=== PATIENT | female | born 1960 | race American Indian/Alaskan Native ===

== ENCOUNTER 2021-02-14 23:38 | Emergency (ER) | payer OTHER ==
--- NOTE | 2021-02-15 03:05 | Emergency Department Report ---
ED Extremity Problem HPI - General Chief complaint: Extremity Problem,Nontraumatic Stated complaint: LEFT LEG PAIN Time Seen by Provider: 02/15/21 02:02 Source: patient, family Mode of arrival: Ambulatory Limitations: No Limitations - History of Present Illness Initial comments: Patient is a 61-year-old female presents emergency room with complaints of left leg pain that began a few days ago. She states that it goes from her left thigh down her left leg to approximately her ankle. She denies any fall or injury. She states occasionally she notices some swelling in her leg but denies any swelling currently. She denies any calf pain. She denies any fever, nausea, vomiting, diarrhea, numbness, weakness, shortness of breath, chest pain. She is ambulatory without difficulty. No past medical history. No allergies to medications. - Related Data Previous Rx's Medication Instructions Recorded Last Taken Type Meloxicam [Mobic] 7.5 mg PO QDAY #10 tablet 02/15/21 Unknown Rx methOCARBAMOL [Robaxin TAB] 500 mg PO BID PRN #14 tab 02/15/21 Unknown Rx Allergies Allergy/AdvReac Type Severity Reaction Status Date / Time No Known Allergies Allergy Verified 02/14/21 23:45 ED Review of Systems ROS: Stated complaint: LEFT LEG PAIN Other details as noted in HPI Comment: All other systems reviewed and negative ED Past Medical Hx - Past Medical History Previous Medical History?: No - Surgical History Past Surgical History?: No - Medications Home Medications: Home Medications Medication Instructions Recorded Confirmed Last Taken Type Meloxicam [Mobic] 7.5 mg PO QDAY #10 tablet 02/15/21 Unknown Rx methOCARBAMOL [Robaxin TAB] 500 mg PO BID PRN #14 tab 02/15/21 Unknown Rx ED Physical Exam - General Limitations: No Limitations General appearance: alert, in no apparent distress - Head Head exam: Present: atraumatic, normocephalic - Eye Eye exam: Present: normal appearance - ENT ENT exam: Present: mucous membranes moist - Respiratory Respiratory exam: Absent: respiratory distress, accessory muscle use - Extremities Exam Extremities exam: Present: normal inspection, full ROM, normal capillary refill, other (no bony ttp of the BLE, FROM of the BLE, no skin changes, no erythema, no edema, no calf ttp, neurovascularly intact with strong distal pulses). Absent: tenderness, pedal edema, joint swelling, calf tenderness - Neurological Exam Neurological exam: Present: alert, oriented X3 - Psychiatric Psychiatric exam: Present: normal affect, normal mood - Skin Skin exam: Present: warm, dry, intact ED Course Vital Signs 02/14/21 02/15/21 02/15/21 23:47 03:55 03:56 Temperature 98.1 F 98.1 F Pulse Rate 75 75 Respiratory 14 20 20 Rate Blood Pressure 160/95 Blood Pressure 155/89 [Left] O2 Sat by Pulse 99 99 99 Oximetry ED Medical Decision Making - Radiology Data Radiology results: report reviewed Ordering Physician: MELINDA CAROLINA Date of Service: 02/15/21 Procedure(s): VL venous duplex LE LT Accession Number(s): [id number] cc: MELINDA CAROLINA DUPLEX DOPPLER LOWER EXTREMITY VEINS, LEFT INDICATION: left leg pain. TECHNIQUE: Duplex doppler imaging was performed through the veins of the left lower extremity using venous compression and other maneuvers. COMPARISON: None available. FINDINGS: Common femoral vein: Negative. Superficial femoral vein: Negative. Popliteal vein: Negative. Calf veins: Negative. Additional findings: None. IMPRESSION: 1. No sonographic evidence for DVT in the left lower extremity. Signer Name: Danni Snyder MD Signed: 02/15/2021 3:16 AM Workstation Name: [id number] Transcribed By: Dictated By: Danni Snyder MD Electronically Authenticated By: Danni Snyder MD Signed Date/Time: 02/15/21315 DD/ 4 TD/TT: - Medical Decision Making Patient is a 61-year-old female presents emergency room with complaints of left leg pain that began a few days ago. She states that it goes from her left thigh down her left leg to approximately her ankle. She denies any fall or injury. She states occasionally she notices some swelling in her leg but denies any swelling currently. She denies any calf pain. She denies any fever, nausea, vomiting, diarrhea, numbness, weakness, shortness of breath, chest pain. She is ambulatory without difficulty. No past medical history. No allergies to medications. Vitals are stable. On exam:no bony ttp of the BLE, FROM of the BLE, no skin changes, no erythema, no edema, no calf ttp, neurovascularly intact with strong distal pulses. Doppler ultrasound: 1. No sonographic evidence for DVT in the left lower extremity. Patient has had no acute trauma, she has full range of motion, no bony tenderness, no signs of septic joint or cellulitis, no signs of acute arterial occlusion, she has strong distal pulses. Patient given prescription for Mobic and Robaxin. Advised patient Please take medication as prescribed. Do not drive or operate heavy machinery while taking muscle relaxer Robaxin. May use ice pack, heating pad, rest, and epsom salt bath. follow-up with the orthopedic doctor. Follow-up with a primary care doctor. Return to emergency room for new or worsening symptoms. Critical care attestation.: If time is entered above; I have spent that time in minutes in the direct care of this critically ill patient, excluding procedure time. ED Disposition Clinical Impression: Left leg pain Disposition: - TO HOME OR SELFCARE Is pt being admited?: No Does the pt Need Aspirin: No Condition: Stable Additional Instructions: Please take medication as prescribed. Do not drive or operate heavy machinery while taking muscle relaxer Robaxin. May use ice pack, heating pad, rest, and epsom salt bath. follow-up with the orthopedic doctor. Follow-up with a primary care doctor. Return to emergency room for new or worsening symptoms. Prescriptions: Meloxicam [Mobic] 7.5 mg PO QDAY #10 tablet methOCARBAMOL [Robaxin TAB] 500 mg PO BID PRN #14 tab PRN Reason: muscle spasm/pain Referrals: PRIMARY MD JONES [Primary Care Provider] - 2-3 Days ISABEL DEAN MD [Staff Physician] - 2-3 Days Time of Disposition: 03:22 Print Language: QATARI
--- NOTE | 2021-02-15 03:20 | Vascular Lab Report ---
DUPLEX DOPPLER LOWER EXTREMITY VEINS, LEFT INDICATION: left leg pain. TECHNIQUE: Duplex doppler imaging was performed through the veins of the left lower extremity using venous compr ession and other maneuvers. COMPARISON: None available. FINDINGS: Common femoral vein: Negative. Superficial femoral vein: Negative. Popliteal vein: Negative. Calf veins: Negative. Additional findings: None. IMPRESSION: 1. No sonographic evidence for DVT in the left lower extremity. Signer Name: Danni Snyder MD Signed: 02/15/2021 3:16 AM Workstation Name: [id number]
[2021-02-15 03:56] VITALS: BP 155/89
== END 2021-02-15 04:40 | disposition home or self-care (01) ==
LOC: ED 23:38
DX: M79.605 Pain in left leg (principal); Z79.899 Other long term (current) drug therapy
CPT/HCPCS: 99283